=== PATIENT | female | born 1990 | race Caucasian/White ===

== ENCOUNTER 2017-11-08 12:22 | Emergency (ER) | payer MEDICAID, SELFPAY ==
[2017-11-08 12:23] VITALS: BP 122/71; PULSE 69; RESP 16; TEMP 36.9; O2SAT 99; BMI 33.8
[2017-11-08 13:20] LABS: Pregnancy, Serum, hCG Quali. NEGATIVE Negative (0-9 Nonpreg)
--- NOTE | 2017-11-08 13:33 | ED.VISSUMM ---
- ER Visit Summary Date of Service: 11/08/17 Chief Complaint: Abnormal painful vaginal bleeding History of Present Illness: The patient is a 27 F who states she is status post bilateral tubal ligation presents with cramping central lower abdomen pelvic pain that started this morning and associated with bleeding and passage of blood clots. Her last menses was 10 days ago. She denies orthostatic symptoms. She denies pain referred to her shoulders. She states she has O+ blood. She denies nausea, vomiting or diarrhea. She denies dysuria, frequency, urgency or hematuria. She denies history of ovarian cysts or endometriosis per she denies history of sexually transmitted disease. Physical Examination: Vital signs are remarkable slight elevation blood pressure 122/71. BMI is 33.8. Head is atraumatic normocephalic. Pupils are equal round reactive. Extraocular muscles are intact. TMs are pearly white with landmarks noted. Nares patent with no drainage. Posterior pharynx without erythema or exudate. Uvula is midline. There is no dysphonia or dysphasia. Trachea is midline. There is no stridor with auscultation of the neck. Heart is regular without murmur, gallop or rub. S1 and S2 are normal. Lungs are clear to auscultation with good movement of air bilaterally. Abdomen is remarkable for minimal lower midline abdominal pain. There is no CVA tenderness noted. There is no evidence of umbilical or inguinal hernia. There is no inguinal lymphadenopathy. External genitalia is normal. There is no bleeding at this time. There is scant amount of blood noted. Bimanual exam is unremarkable. The uterus is normal size. There is no cervical motion tenderness. There is no adnexal masses or tenderness. Test Results: Serum hCG is negative. Emergency Department Course and Treatment: Will obtain test. If positive she will need ultrasound because of concern for ectopic . If negative this would represent metromenorrhagia. Treatment Plan: Discharged to home with instructions to take ibuprofen for her pain. Disposition: Discharged home Impression: Abnormal heavy painful vaginal bleeding This note was generated with [employer] dictation software. It may contain incorrect words, spelling, and punctuation that were not noted in review of the chart prior to signing ED Disposition - Plan for ED Patient: Disposition: Home or Assisted Living Chief Complaint: Vag Bleeding Instructions: ED Cramping Menstrual, ED Bleed Irregular Vaginal Referrals: Care Physician,No Primary [Primary Care Provider] - Additional Instructions: Take ibuprofen, 4 tablets every 8 hours for the next 2 days. Follow-up with the doctor you were assigned to by your insurance carrier, [email or web address]
[2017-11-08] MEDS: Ibuprofen 400 MG Tablet 800 MG PO (13:44)
[2017-11-08 13:47] VITALS: BP 118/74; PULSE 62; RESP 15; O2SAT 98
== END 2017-11-08 13:49 | disposition home or self-care (01) ==
PROVIDERS: Emergency Provider Emergency Medicine
DX: N93.8 Other specified abnormal uterine and vaginal bleeding (principal)
CPT/HCPCS: 84703; 99284; A4216